=== PATIENT | female | born 1970 | race Two or more races ===

== ENCOUNTER 2024-05-06 23:06 | Emergency (ER) | payer BC ==
[~2024-05-06] VITALS: Ht 160 cm; Wt 79.4 kg
[2024-05-06] MEDS ORDERED: KEPPRA500 MG PO (23:40)
[2024-05-06] MEDS ORDERED: HORIZANT300 MG PO (23:41)
[2024-05-06] MEDS ORDERED: XYZAL5 MG PO (23:41)
[2024-05-06] MEDS ORDERED: SINGULAIR10 MG PO (23:41)
[2024-05-06] MEDS ORDERED: ALECENSA150 MG PO (23:42)
[2024-05-06] MEDS ORDERED: LIPITOR20 MG PO (23:42)
[2024-05-06] MEDS ORDERED: LAMOTRIGINE100 MG PO (23:42)
[2024-05-06] MEDS ORDERED: XARELTO10 M1 PO (23:43)
[2024-05-07] MEDS ORDERED: TETANUS & DIPHTHERIA TOX,ADULT 0.5 ML VIAL IM STA (00:49)
[2024-05-07] MEDS ORDERED: BACITRACIN-NEOMYCIN-POLYMYXIN 0.9 GM PACKET TOP ONE (01:28)
[2024-05-07] MEDS ORDERED: CEFTRIAXONE SODIUM 1,000 MG VIAL IM STA (01:40)
[2024-05-07] MEDS ORDERED: CEFTRIAXONE SODIUM 1,000 MG VIAL ONE (01:50)
[2024-05-07] MEDS ORDERED: MUPIROCIN1 G1 TOP (01:54)
[2024-05-07] MEDS ORDERED: CEPHALEXIN500 MG PO (01:54)
[2024-05-07] MEDS ORDERED: TETANUS DIPHTH0.5 ML IM (01:55)
== END 2024-05-07 02:01 ==
LOC: ER 23:09
DX: S61.214A Laceration without foreign body of right ring finger without damage to nail, initial encounter (principal); W05.0XXA Fall from non-moving wheelchair, initial encounter; Y93.89 Activity, other specified; Y92.89 Other specified places as the place of occurrence of the external cause; Y99.9 Unspecified external cause status; Z85.9 Personal history of malignant neoplasm, unspecified